=== PATIENT | female | born 1980 | race African-American/Black ===

== ENCOUNTER 2020-06-27 12:00 | Emergency (ER) | payer OTHER ==
[~2020-06-27] VITALS: Ht 172.7 cm; Wt 81.0 kg
[2020-06-27 12:30] VITALS: BP 177/81
[2020-06-27] MEDS ORDERED: HYDROcodone/APAP 5/325MG 1 TAB TABLET PO ONE (13:00)
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
[2020-06-27 13:22] LABS: BILIRUBIN,URINE NEGATIVE (NEG); CLARITY,URINE CLEAR; COLOR,URINE YELLOW; NITRITE,URINE NEGATIVE (NEG); PH,URINE 5.5 (<5.0-8.0); PROTEIN,URINE NEGATIVE (NEG-TRACE); UROBILINOGEN,URINE 0.2 mg/dL (0.2 mg/dL)
[2020-06-27] MEDS ORDERED: METH4TAB2 PO (13:30)
[2020-06-27] MEDS ORDERED: CYCL5TAB PO (13:30)
[2020-06-27] MEDS ORDERED: HYDR-2761 PO (13:30)
[2020-06-27] MEDS ORDERED: IBUP-1007 PO (13:30)
[2020-06-27 13:47] LABS: BACTERIA,URINE 0 /HPF (0-FEW)
--- NOTE | 2020-06-27 13:47 | RAD ---
CT LUMBAR SPINE WO Date: 06/27/2020 1:34 PM Indication: Reason: spinal pain with foot tingling / Spl. Instructions: / History: Comparison: None. Technique: Helical CT images of the lumbar spine were obtained without contrast. Coronal and sagitta l reformatted images were also performed. One or more of the following dose reduction techniques were utilized: Automated exposure control (AEC), Adjustment of mA and/or kV according to patient size, Us e of iterative reconstruction technique such as ASiR, CT scan done according to ALARA and image gentl y/image wisely. Findings: The lumbar spine is normally aligned. No acute fracture. Vertebral body heights are maintained withou t compression deformity. Multilevel degenerative disc disease, moderate at L4-5 and L5-S1. No aggress keeley lytic or blastic osseous lesion. Multilevel small disc bulges. No high-grade spinal canal stenosis. Moderate to severe narrowing of th e right L4-5 neural foramen, mild to moderate at the remaining levels. No soft tissue abnormality within the visualized abdomen or pelvis. The visualized abdominal aorta is normal caliber. IMPRESSION: 1. No acute osseous abnormality of the lumbar spine. 2. Lumbar spondylosis. No severe spinal canal stenosis. Moderate to severe narrowing of the right L4- 5 neural foramen appear Electronically signed by: Faustino Schuster MD (06/27/2020 1:44 PM) [facility]
[2020-06-27] MEDS ORDERED: CEPH500C PO (13:51)
== END 2020-06-27 14:00 | disposition home or self-care (01) ==
LOC: ER 12:00
DX: N39.0 Urinary tract infection, site not specified (principal); M54.41 Lumbago with sciatica, right side; M54.42 Lumbago with sciatica, left side; R31.9 Hematuria, unspecified; F17.200 Nicotine dependence, unspecified, uncomplicated
CPT/HCPCS: 72131; 81001; 81025; 87086; 99284-25

== ENCOUNTER 2020-09-28 21:09 | Emergency (ER) | payer OTHER ==
[~2020-09-28] VITALS: Ht 172.7 cm; Wt 81.8 kg
[~2020-09-28 21:09] MED LIST: CEPH500C PO; CYCL5TAB PO; HYDR-2761 PO; IBUP-1007 PO; METH4TAB2 PO
[2020-09-28 21:30] VITALS: BP 166/97
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
[2020-09-28] MEDS ORDERED: GENT5DRO3 EACHEYE (22:04)
[2020-09-28] MEDS ORDERED: TETRACAINE 0.5% OPHTH SOLUTION 4ML BOTTLE. OS ONE (22:30)
[2020-09-28] MEDS ORDERED: ACET1TAB33 PO (22:30)
[2020-09-28] MEDS ORDERED: FLUORESCEIN OPHTH TEST STRIP. OS ONE (22:30)
== END 2020-09-28 22:45 | disposition home or self-care (01) ==
LOC: ER 21:09
DX: H10.9 Unspecified conjunctivitis (principal); F17.200 Nicotine dependence, unspecified, uncomplicated
CPT/HCPCS: 99283